=== PATIENT | male | born 1960 | race Caucasian/White ===

== ENCOUNTER 2020-04-27 05:24 | Day surgery (SDC) | payer OTHER ==
[2020-04-26 12:49] VITALS: BMI 35.1
[2020-04-27 10:45] VITALS: TEMP 97.8
[2020-04-27 13:28] VITALS: BP 123/75; PULSE 55
== END 2020-04-27 13:31 | disposition home or self-care (01) ==
LOC: JASU-ENDO 05:24
PROVIDERS: ATTEND Internal Medicine Gastroenterology
PROC: 0DBP8ZX Excision of Rectum, Via Natural or Artificial Opening Endoscopic, Diagnostic (ICD-10-PCS; 2020-04-27)
PROC: 0DBN8ZX Excision of Sigmoid Colon, Via Natural or Artificial Opening Endoscopic, Diagnostic (ICD-10-PCS; 2020-04-27)
PROC: 3E0H8GC Introduction of Other Therapeutic Substance into Lower GI, Via Natural or Artificial Opening Endoscopic (ICD-10-PCS; 2020-04-27)
PROC: 0DBP8ZX Excision of Rectum, Via Natural or Artificial Opening Endoscopic, Diagnostic (ICD-10-PCS; principal; 2020-04-27 11:00)
DX: Z12.11 Encounter for screening for malignant neoplasm of colon (principal); D12.8 Benign neoplasm of rectum; K63.5 Polyp of colon; K64.8 Other hemorrhoids
CPT/HCPCS: 88305-TC

== ENCOUNTER 2020-09-21 04:41 | Day surgery (SDC) | payer OTHER ==
[2020-09-20 11:06] VITALS: BMI 31.7
[2020-09-21 11:42] VITALS: TEMP 97.5
[2020-09-21 14:55] VITALS: BP 129/75; PULSE 52
== END 2020-09-21 12:55 | disposition home or self-care (01) ==
LOC: JASU-ENDO 04:41
PROVIDERS: ATTEND Internal Medicine Gastroenterology
PROC: 0DBP8ZX Excision of Rectum, Via Natural or Artificial Opening Endoscopic, Diagnostic (ICD-10-PCS; 2020-09-21)
PROC: 0DBN8ZX Excision of Sigmoid Colon, Via Natural or Artificial Opening Endoscopic, Diagnostic (ICD-10-PCS; principal; 2020-09-21 10:00)
DX: K62.1 Rectal polyp (principal); D12.5 Benign neoplasm of sigmoid colon; K64.8 Other hemorrhoids
CPT/HCPCS: 88305-TC

== ENCOUNTER 2021-03-05 04:43 | Day surgery (SDC) | payer OTHER ==
[2021-03-01 12:41] VITALS: BMI 31.9
[2021-03-05] MEDS ORDERED: PROPOFOL 20 ML ONE (12:05)
[2021-03-05] MEDS ORDERED: MIDAZOLAM HCL 2 MG/2 ML SINGLE DOSE VIAL ONE (12:05)
[2021-03-05] MEDS ORDERED: LIDOCAINE HCL/PF 2% SDV 5ML VIAL ONE (12:08)
[2021-03-05] MEDS ORDERED: DEXAMETHASONE SOD PHOSPHATE 4 MG/1 ML VIAL ONE (12:30)
[2021-03-05] MEDS ORDERED: oxyCODONE HCL 5 MG TABLET PO PRN ×2 (12:35)
[2021-03-05] MEDS ORDERED: ONDANSETRON 4 MG/2 ML VIAL IVPUSH PRN (12:35)
[2021-03-05] MEDS ORDERED: LACTATED RINGERS SOLUTION 1,000 ML IV SCH (12:45)
[2021-03-05] MEDS ORDERED: KETOROLAC TROMETHAMINE 30 MG/1 ML VIAL ONE (13:08)
[2021-03-05] MEDS ORDERED: IOHEXOL 300 MG/ML INFUS..BTL IV ONE (13:12)
[2021-03-05 17:21] VITALS: TEMP 97.8
[2021-03-05 18:17] VITALS: BP 129/73; PULSE 67
== END 2021-03-05 16:35 | disposition home or self-care (01) ==
LOC: JASU-SURG 04:43
PROVIDERS: ATTEND Urology
PROC: 0TND8ZZ Release Urethra, Via Natural or Artificial Opening Endoscopic (ICD-10-PCS; principal; 2021-03-05 12:00)
PROC: 0T7D8ZZ Dilation of Urethra, Via Natural or Artificial Opening Endoscopic (ICD-10-PCS; 2021-03-05 12:00)
DX: N35.812 Other bulbous urethral stricture, male (principal)
CPT/HCPCS: 76000-TC-FY; 94760

== ENCOUNTER 2021-09-04 17:36 | Inpatient (IN) | payer OTHER ==
[2021-09-04 18:00] VITALS: BMI 31.7
[2021-09-04] MEDS ORDERED: AMPICILLIN NA/SULBACTAM NA 3 GM in SODIUM CHLORIDE 100 ML IVPB ONE (18:34)
[2021-09-04] MEDS ORDERED: KETOROLAC TROMETHAMINE 30 MG/1 ML VIAL IVPUSH ONE (18:35)
[2021-09-04] MEDS ORDERED: KETOROLAC TROMETHAMINE 30 MG/1 ML VIAL ONE (18:47)
[2021-09-04 19:30] LABS: BASO % 0.3 % (0-2.0); EOS % 0.4 % (0-4.5); HEMATOCRIT 42.5 % (35.4-49); LYMPH % 12.1 % (8-40); MCH 28.5 pg (25.7-33.7); MCHC 32.9 g/dl (32.0-35.9); MEAN CELL VOLUME 86.7 fl (80-96); MEAN PLT VOLUME 10.8 fl (7.5-11.1); MONO % 12.3 % (3.8-10.2); NEUT % 74.9 % (42.8-82.8); PLATELET COUNT 161 10^3/uL (134-434); RBC 4.91 M/mm3 (4.00-5.60); RDW 14.1 % (11.9-15.9); WHITE BLOOD COUNT 9.9 K/mm3 (4.0-10.0)
[2021-09-04 19:53] LABS: BLOOD UREA NITROGEN 18.5 mg/dL (7-18); CALCIUM 8.6 mg/dL (8.5-10.1)
[2021-09-04 19:54] LABS: ALBUMIN 3.7 g/dl (3.4-5.0)
[2021-09-04 19:57] LABS: CREATININE 1.1 mg/dL (0.55-1.3)
[2021-09-04 19:58] LABS: BILIRUBIN,TOTAL 0.8 mg/dL (0.2-1); TOT PROT 7.1 g/dl (6.4-8.2)
[2021-09-04 20:36] LABS: ERYTHROCYTE SEDIMENTATION RATE 5 mm/hr (0-20)
[2021-09-05] MEDS ORDERED: KETOROLAC TROMETHAMINE 15 MG/ML VIAL IVPUSH PRN (04:57)
[2021-09-05] MEDS ORDERED: SODIUM CHLORIDE 100 ML IVPB ONE ×2 (08:49→18:51)
[2021-09-05] MEDS ORDERED: AMPICILLIN NA/SULBACTAM NA 3 GM VIAL ONE ×2 (08:49→18:51)
[2021-09-05] MEDS: ENOXAPARIN NA (PORCINE) 40 MG/0.4 ML DISP.SYRIN SQ SCH (09:06)
[2021-09-05] MEDS: AMPICILLIN NA/SULBACTAM NA 3 GM in SODIUM CHLORIDE 100 ML IVPB SCH ×3 (09:06→19:50)
[2021-09-05 09:45] LABS: HEMATOCRIT 41.8 % (35.4-49); HEMOGLOBIN 13.8 GM/dL (11.7-16.9); MCH 28.3 pg (25.7-33.7); PLATELET COUNT 161 10^3/uL (134-434); RBC 4.86 M/mm3 (4.00-5.60); RDW 13.9 % (11.9-15.9); WHITE BLOOD COUNT 8.7 K/mm3 (4.0-10.0)
[2021-09-05 10:17] LABS: ALBUMIN 3.2 g/dl (3.4-5.0); BLOOD UREA NITROGEN 19.8 mg/dL (7-18); CALCIUM 8.3 mg/dL (8.5-10.1)
[2021-09-05 10:20] LABS: CREATININE 1.2 mg/dL (0.55-1.3); PHOSPHOROUS 2.6 mg/dL (2.5-4.9)
[2021-09-05 10:22] LABS: BILIRUBIN,TOTAL 0.9 mg/dL (0.2-1); TOT PROT 6.6 g/dl (6.4-8.2)
[2021-09-06] MEDS ORDERED: AMPICILLIN NA/SULBACTAM NA 3 GM VIAL ONE ×2 (01:50→09:08)
[2021-09-06] MEDS ORDERED: SODIUM CHLORIDE 100 ML IVPB ONE ×2 (01:50→09:08)
[2021-09-06] MEDS: AMPICILLIN NA/SULBACTAM NA 3 GM in SODIUM CHLORIDE 100 ML IVPB SCH ×2 (02:17→09:15)
[2021-09-06] MEDS: ENOXAPARIN NA (PORCINE) 40 MG/0.4 ML DISP.SYRIN SQ SCH (09:15)
[2021-09-06 11:49] LABS: BASO % 0.3 % (0-2.0); EOS % 0.9 % (0-4.5); HEMATOCRIT 44.6 % (35.4-49); HEMOGLOBIN 14.7 GM/dL (11.7-16.9); LYMPH % 16.4 % (8-40); MCH 28.3 pg (25.7-33.7); MCHC 32.9 g/dl (32.0-35.9); MEAN CELL VOLUME 85.9 fl (80-96); MEAN PLT VOLUME 10.9 fl (7.5-11.1); MONO % 10.8 % (3.8-10.2); NEUT % 71.6 % (42.8-82.8); PLATELET COUNT 182 10^3/uL (134-434); RBC 5.19 M/mm3 (4.00-5.60); RDW 14.1 % (11.9-15.9)
[2021-09-06 12:28] LABS: BLOOD UREA NITROGEN 17.1 mg/dL (7-18)
[2021-09-06 12:30] LABS: CALCIUM 8.5 mg/dL (8.5-10.1)
[2021-09-06 12:32] LABS: CREATININE 1.1 mg/dL (0.55-1.3)
[2021-09-06] MEDS: TAMSULOSIN HCL 0.4 MG CAP PO SCH (13:53)
[2021-09-06] MEDS ORDERED: PIPERACILLIN/TAZOBACTAM 3.375 GM VIAL IVPB ONE (16:56)
[2021-09-06] MEDS ORDERED: DEXTROSE 5%-WATER - 50 ML IVPB ONE (16:56)
[2021-09-06] MEDS: PIPERACILLIN/TAZOB 3.375 GM 3.375 GM in DEXTROSE 5%-WATER - 50 ML IVPB SCH (17:04)
[2021-09-07] MEDS ORDERED: DEXTROSE 5%-WATER - 50 ML IVPB ONE ×3 (01:05→16:53)
[2021-09-07] MEDS ORDERED: PIPERACILLIN/TAZOBACTAM 3.375 GM VIAL IVPB ONE ×3 (01:05→16:52)
[2021-09-07] MEDS: PIPERACILLIN/TAZOB 3.375 GM 3.375 GM in DEXTROSE 5%-WATER - 50 ML IVPB SCH ×3 (01:14→17:07)
[2021-09-07] MEDS: TAMSULOSIN HCL 0.4 MG CAP PO SCH (09:41)
[2021-09-07] MEDS: ENOXAPARIN NA (PORCINE) 40 MG/0.4 ML DISP.SYRIN SQ SCH (09:42)
[2021-09-07 11:11] LABS: BASO % 0.4 % (0-2.0); EOS % 1.6 % (0-4.5); HEMATOCRIT 42.8 % (35.4-49); HEMOGLOBIN 14.3 GM/dL (11.7-16.9); MCH 28.4 pg (25.7-33.7); MCHC 33.5 g/dl (32.0-35.9); MEAN PLT VOLUME 9.9 fl (7.5-11.1); MONO % 11.2 % (3.8-10.2); NEUT % 68.8 % (42.8-82.8); PLATELET COUNT 181 10^3/uL (134-434); RBC 5.04 M/mm3 (4.00-5.60); RDW 14.2 % (11.9-15.9); WHITE BLOOD COUNT 5.6 K/mm3 (4.0-10.0)
[2021-09-07 11:41] LABS: CALCIUM 8.8 mg/dL (8.5-10.1)
[2021-09-07 11:42] LABS: BLOOD UREA NITROGEN 15.6 mg/dL (7-18)
[2021-09-07 11:45] LABS: CREATININE 1.2 mg/dL (0.55-1.3)
[2021-09-07 14:22] VITALS: RESP 18
[2021-09-08] MEDS ORDERED: DEXTROSE 5%-WATER - 50 ML IVPB ONE ×3 (01:05→18:09)
[2021-09-08] MEDS ORDERED: PIPERACILLIN/TAZOBACTAM 3.375 GM VIAL IVPB ONE ×3 (01:05→18:08)
[2021-09-08] MEDS: PIPERACILLIN/TAZOB 3.375 GM 3.375 GM in DEXTROSE 5%-WATER - 50 ML IVPB SCH ×3 (01:18→18:13)
[2021-09-08] MEDS: TAMSULOSIN HCL 0.4 MG CAP PO SCH (09:49)
[2021-09-08] MEDS: ENOXAPARIN NA (PORCINE) 40 MG/0.4 ML DISP.SYRIN SQ SCH (09:49)
[2021-09-08 10:24] LABS: BASO % 0.4 % (0-2.0); EOS % 2.2 % (0-4.5); HEMATOCRIT 43.2 % (35.4-49); HEMOGLOBIN 14.6 GM/dL (11.7-16.9); LYMPH % 18.1 % (8-40); MCH 28.8 pg (25.7-33.7); MCHC 33.8 g/dl (32.0-35.9); MEAN CELL VOLUME 85.1 fl (80-96); MEAN PLT VOLUME 10.4 fl (7.5-11.1); MONO % 7.7 % (3.8-10.2); NEUT % 71.6 % (42.8-82.8); PLATELET COUNT 195 10^3/uL (134-434); RBC 5.07 M/mm3 (4.00-5.60); RDW 13.9 % (11.9-15.9)
[2021-09-08 10:50] LABS: BLOOD UREA NITROGEN 17.6 mg/dL (7-18); CALCIUM 8.8 mg/dL (8.5-10.1)
[2021-09-08 10:53] LABS: CREATININE 1.2 mg/dL (0.55-1.3)
[2021-09-08] MEDS: POLYETHYLENE GLYCOL (HEALTHYLAX) 3350 17 GM PACKET PO SCH ×2 (12:15→21:30)
[2021-09-09] MEDS ORDERED: PIPERACILLIN/TAZOBACTAM 3.375 GM VIAL IVPB ONE ×3 (01:19→16:58)
[2021-09-09] MEDS ORDERED: DEXTROSE 5%-WATER - 50 ML IVPB ONE ×3 (01:19→16:58)
[2021-09-09] MEDS: PIPERACILLIN/TAZOB 3.375 GM 3.375 GM in DEXTROSE 5%-WATER - 50 ML IVPB SCH ×3 (01:22→17:44)
[2021-09-09 09:17] LABS: HEMATOCRIT 42.9 % (35.4-49); HEMOGLOBIN 14.6 GM/dL (11.7-16.9); MCH 28.8 pg (25.7-33.7); MCHC 34.1 g/dl (32.0-35.9); MEAN CELL VOLUME 84.3 fl (80-96); MEAN PLT VOLUME 9.7 fl (7.5-11.1); PLATELET COUNT 204 10^3/uL (134-434); RBC 5.09 M/mm3 (4.00-5.60); RDW 13.6 % (11.9-15.9); WHITE BLOOD COUNT 6.3 K/mm3 (4.0-10.0)
[2021-09-09 09:38] LABS: BLOOD UREA NITROGEN 19.2 mg/dL (7-18); CALCIUM 8.8 mg/dL (8.5-10.1)
[2021-09-09 09:41] LABS: CREATININE 1.3 mg/dL (0.55-1.3)
[2021-09-09] MEDS: ENOXAPARIN NA (PORCINE) 40 MG/0.4 ML DISP.SYRIN SQ SCH (10:16)
[2021-09-09] MEDS: TAMSULOSIN HCL 0.4 MG CAP PO SCH (10:16)
[2021-09-09] MEDS: POLYETHYLENE GLYCOL (HEALTHYLAX) 3350 17 GM PACKET PO SCH ×2 (10:17→21:51)
[2021-09-10] MEDS ORDERED: DEXTROSE 5%-WATER - 50 ML IVPB ONE ×3 (01:13→16:40)
[2021-09-10] MEDS ORDERED: PIPERACILLIN/TAZOBACTAM 3.375 GM VIAL IVPB ONE ×3 (01:13→16:39)
[2021-09-10] MEDS: PIPERACILLIN/TAZOB 3.375 GM 3.375 GM in DEXTROSE 5%-WATER - 50 ML IVPB SCH ×3 (01:22→17:19)
[2021-09-10] MEDS ORDERED: SODIUM CHLORIDE 0.45% 1,000 ML IV SCH (07:15)
[2021-09-10 09:00] LABS: HEMATOCRIT 43.5 % (35.4-49); HEMOGLOBIN 14.6 GM/dL (11.7-16.9); MCH 28.5 pg (25.7-33.7); MCHC 33.5 g/dl (32.0-35.9); MEAN CELL VOLUME 85.2 fl (80-96); PLATELET COUNT 212 10^3/uL (134-434); RDW 14.1 % (11.9-15.9); WHITE BLOOD COUNT 5.9 K/mm3 (4.0-10.0)
[2021-09-10 09:28] LABS: CALCIUM 8.8 mg/dL (8.5-10.1)
[2021-09-10 09:29] LABS: BLOOD UREA NITROGEN 19.9 mg/dL (7-18)
[2021-09-10 09:32] LABS: CREATININE 1.2 mg/dL (0.55-1.3)
[2021-09-10] MEDS: ENOXAPARIN NA (PORCINE) 40 MG/0.4 ML DISP.SYRIN SQ SCH (09:47)
[2021-09-10] MEDS: TAMSULOSIN HCL 0.4 MG CAP PO SCH (09:47)
[2021-09-10] MEDS: POLYETHYLENE GLYCOL (HEALTHYLAX) 3350 17 GM PACKET PO SCH (09:47)
[2021-09-10] MEDS ORDERED: BACITRACIN 15 GM TUBE TOPICAL OINTMENT TP SCH (10:00)
[2021-09-10 18:15] VITALS: BP 142/90; PULSE 63; TEMP 98.9
== END 2021-09-10 19:01 | disposition home or self-care (01) | DRG 383 ==
LOC: JER 17:36 → JERBED 20:37 → J5S 09-05 03:49
PROVIDERS: ADMIT Hospitalist; ATTEND Internal Medicine
DX: L03.113 Cellulitis of right upper limb (principal); K59.00 Constipation, unspecified; M25.531 Pain in right wrist; M79.641 Pain in right hand; M79.89 Other specified soft tissue disorders; K76.0 Fatty (change of) liver, not elsewhere classified; S61.551A Open bite of right wrist, initial encounter; S61.451A Open bite of right hand, initial encounter; W55.01XA Bitten by cat, initial encounter; Y92.098 Other place in other non-institutional residence as the place of occurrence of the external cause; R73.03 Prediabetes; Z85.46 Personal history of malignant neoplasm of prostate
CPT/HCPCS: 0241U-QW; 36415; 73110-TC-RT-FY; 73130-TC-RT-FY; 73201-TC-RT; 73218-TC-RT; 80048; 80053; 83036; 83605; 83735; 84100; 85025; 85027; 85651; 86140; 87040; 93005; 93010; 99285-25; Q9967

== ENCOUNTER 2022-01-01 23:31 | Emergency (ER) | payer OTHER ==
[2022-01-01 23:39] VITALS: BP 167/98; PULSE 74; RESP 18; TEMP 98; BMI 32.5
[2022-01-02] MEDS ORDERED: TETRACAINE 0.5% HCL 0.6ML DROPPER.BOTTLE OD ONE (00:50)
[2022-01-02] MEDS ORDERED: FLUORESCEIN NA 1 EA STRIP OD ONE (00:50)
[2022-01-02] MEDS ORDERED: TETRACAINE 0.5% OPHTH SOLN 2 ML BOTTLE ONE (00:53)
[2022-01-02] MEDS ORDERED: FLUORESCEIN NA 1 EA STRIP ONE (00:53)
== END 2022-01-02 01:55 | disposition home or self-care (01) ==
LOC: JERFT 23:31 → JER 23:31 → JERFT 01-02 01:55
DX: H53.142 Visual discomfort, left eye (principal)
CPT/HCPCS: 99283-25

== ENCOUNTER 2022-10-20 02:55 | Emergency (ER) | payer OTHER ==
[2022-10-20 03:06] VITALS: RESP 18; BMI 30.1
[2022-10-20 03:53] LABS: BASO % 0.4 % (0-2.0); EOS % 3.3 % (0-4.5); HEMATOCRIT 39.8 % (35.4-49); HEMOGLOBIN 13.4 GM/dL (11.7-16.9); LYMPH % 30.5 % (8-40); MCH 28.5 pg (25.7-33.7); MCHC 33.7 g/dl (32.0-35.9); MEAN CELL VOLUME 84.8 fl (80-96); MEAN PLT VOLUME 10.3 fl (7.5-11.1); NEUT % 54.8 % (42.8-82.8); PLATELET COUNT 156 10^3/uL (134-434); RBC 4.69 M/mm3 (4.00-5.60); RDW 14.1 % (11.9-15.9); WHITE BLOOD COUNT 5.2 K/mm3 (4.0-10.0)
[2022-10-20 04:30] LABS: POTASSIUM 4.3 mmol/L (3.5-5.1)
[2022-10-20 04:32] LABS: ALBUMIN 3.6 g/dl (3.4-5.0); BLOOD UREA NITROGEN 24.5 mg/dL (7-18); INR 1.02 (0.83-1.09); PROTHROMBIN TIME (PATIENT) 11.8 SEC (9.7-13.0)
[2022-10-20] MEDS ORDERED: SODIUM CHLORIDE 0.9% 500 ML INFUS.BAG IV ONE (04:34)
[2022-10-20 04:35] LABS: ACTIVATED PTT 32.7 SECONDS (25.2-36.5); CREATININE 1.2 mg/dL (0.55-1.3)
[2022-10-20 04:37] LABS: BILIRUBIN,TOTAL 0.4 mg/dL (0.2-1); TOT PROT 6.8 g/dl (6.4-8.2)
[2022-10-20 06:22] VITALS: BP 138/80; PULSE 58; TEMP 98
== END 2022-10-20 06:22 | disposition home or self-care (01) ==
LOC: JER 02:55
DX: R07.89 Other chest pain (principal)
CPT/HCPCS: 36415; 71045-TC-FY; 80053; 84484; 85025; 85610; 85730; 93005; 93010; 99285-25